=== PATIENT | male | born 1935 | race Caucasian/White ===

== ENCOUNTER 2021-08-06 01:02 | Emergency (ER) | payer MEDICARE, BC ==
[~2021-08-06 01:02] MED LIST: ABILIFY 2 MG TAB2 MG PO; ABILIFY2 MG PO; ALPRAZOLAM0.5 MG PO; AMIODARONE HCL200 MG PO; ASPIR-LOW81 MG PO; ASPIRIN325 MG PO; B12 PO; B6 PO; CALCIUM 600 +1 EACH PO; CALCIUM600 MG PO; CARDIZEM 30MG T30 MG PO; CHONDROITIN PO; CICLOPIROX 8%34.6 ML TP; CLARITIN10 MG PO; D3 PO; DAILY MULTIPLE1 EAC1 PO; ELIQUIS 5 MG TAB5 MG PO; ELIQUIS5 MG PO; FLONASE 0.05% N16 GM; GLUCOSAMINE &1 EAC1 PO; GLUCOSAMINE PO; HARD NAILS2500 MCG PO; KEFLEX CAP 500500 MG PO; LOTRIMIN CREAM15 GM TP; METOPROLOL SUCC50 MG PO; NEXIUM 24HR22.3 MG PO; NITROGLYCERIN0.4 MG SL; OCUVITE EYE PL1 EACH PO; OCUVITE EYEBOTH; OMNICEF 300 MG300 MG PO; PRO AIR INH INH; PROAIR HFA8.5 GM INH; PROTONIX40 MG PO; PROVENTIL HFA 61 INH INH; SERZONE TAB 10100 MG PO; SOTALOL120 MG PO; SOTALOL80 MG PO; STOOL SOFTENER100 MG PO; TESSALON PERLE100 MG PO; THERAGRAN M TAB1 EA PO; TOPROL XL50 MG PO; TYLENOL 500 MG500 MG PO; VITAMIN B-121000 MCG PO; VITAMIN B-6100 MG PO; VITAMIN D1000 UNIT PO; XANAX0.5 MG PO; ZOLOFT100 MG PO
[2021-08-06 01:49] LABS: RED BLOOD COUNT 4.48 M/UL (4.20-5.50); WHITE BLOOD COUNT 13.1 K/UL (4.5-11.0)
[2021-08-06 02:37] LABS: BUN/CREATININE RATIO 20 (0-10)
[2021-08-06] MEDS ORDERED: PREDNISONE20 MG PO (03:42)
[2021-08-06] MEDS ORDERED: ALBUTEROL2.5 MG/3 M INH (03:48)
[2021-08-06] MEDS ORDERED: NEBULIZER UNIT (03:48)
[2021-08-06] MEDS ORDERED: PULMICORT FLEX90 MCG INH (03:48)
== END 2021-08-06 03:54 | disposition admitted as inpatient to this hospital (09) ==
LOC: ER1 01:02
PROVIDERS: Family Medicine
DX: J44.1 Chronic obstructive pulmonary disease with (acute) exacerbation (principal); Z87.891 Personal history of nicotine dependence
CPT/HCPCS: 71045; 80053; 82550; 82553; 83605; 84484; 85025; 93005; 94664; 96374; 99285; J2930

== ENCOUNTER → 2021-08-09 | Outpatient (CLI) | payer MEDICARE, BC ==
[~2021-08-09] MED LIST changes: +ALBUTEROL2.5 MG/3 M INH; +NEBULIZER UNIT; +PREDNISONE20 MG PO; +PULMICORT FLEX90 MCG INH
[2021-08-09 15:46] LABS: RED BLOOD COUNT 3.98 M/UL (4.20-5.50); WHITE BLOOD COUNT 12.6 K/UL (4.5-11.0)
== END ==
LOC: RAD 14:54
PROVIDERS: Nurse Practitioner
DX: R06.02 Shortness of breath (principal); R06.2 Wheezing; R53.83 Other fatigue; I12.9 Hypertensive chronic kidney disease with stage 1 through stage 4 chronic kidney disease, or unspecified chronic kidney disease; N18.2 Chronic kidney disease, stage 2 (mild); Z88.2 Allergy status to sulfonamides
CPT/HCPCS: 36415; 71046; 80053; 83880; 85025; 85379

== ENCOUNTER 2021-08-10 17:10 | Emergency (ER) | payer MEDICARE, BC ==
[2021-08-10 18:05] LABS: HEMOGLOBIN 13.1 gm/dl (14.0-17.5); RED BLOOD COUNT 3.98 M/UL (4.20-5.50); WHITE BLOOD COUNT 12.6 K/UL (4.5-11.0)
[2021-08-10 18:34] LABS: BUN/CREATININE RATIO 32 (0-10)
== END 2021-08-10 20:48 | disposition home or self-care (01) ==
LOC: ER1 17:10
PROVIDERS: Nurse Practitioner
DX: R05.9 Cough, unspecified (principal); R79.89 Other specified abnormal findings of blood chemistry; R94.4 Abnormal results of kidney function studies; I48.91 Unspecified atrial fibrillation; I11.9 Hypertensive heart disease without heart failure; J44.9 Chronic obstructive pulmonary disease, unspecified; Z88.2 Allergy status to sulfonamides; Z20.822 Contact with and (suspected) exposure to COVID-19
CPT/HCPCS: 80053; 82550; 82553; 83874; 83880; 84484; 85025; 85610; 93005; 99285; U0002

== ENCOUNTER → 2021-09-21 | Outpatient (CLI) | payer MEDICARE, BC | LOC: HEART 5 09:08 | DX: I48.91 Unspecified atrial fibrillation (principal); R06.02 Shortness of breath; I08.3 Combined rheumatic disorders of mitral, aortic and tricuspid valves | CPT/HCPCS: 93306 ==

== ENCOUNTER 2022-05-08 11:18 | Emergency (ER) | payer MEDICARE, BC ==
[2022-05-08 12:25] LABS: RED BLOOD COUNT 3.89 M/UL (4.20-5.50); WHITE BLOOD COUNT 13.5 K/UL (4.5-11.0)
[2022-05-08 12:48] LABS: BUN/CREATININE RATIO 19 (0-10)
== END 2022-05-08 18:00 | disposition short-term general hospital (02) ==
LOC: ER1 11:18
PROVIDERS: Emergency Medicine
DX: N13.2 Hydronephrosis with renal and ureteral calculous obstruction (principal); Q61.9 Cystic kidney disease, unspecified; N17.9 Acute kidney failure, unspecified; D72.829 Elevated white blood cell count, unspecified; J45.909 Unspecified asthma, uncomplicated; R00.1 Bradycardia, unspecified; Z20.822 Contact with and (suspected) exposure to COVID-19; I11.0 Hypertensive heart disease with heart failure; I50.9 Heart failure, unspecified; I48.91 Unspecified atrial fibrillation; Z87.442 Personal history of urinary calculi; Z79.01 Long term (current) use of anticoagulants; Z86.73 Personal history of transient ischemic attack (TIA), and cerebral infarction without residual deficits; Z86.79 Personal history of other diseases of the circulatory system
CPT/HCPCS: 0240U; 71045; 80053; 81001; 82550; 82553; 83605; 83690; 83880; 84484; 85025; 87040; 87086; 93005; 96361; 96374; 96375; 99285; J0696; J2270; J2405; J7040

== ENCOUNTER → 2022-06-29 | Outpatient (CLI) | payer MEDICARE ==
[~2022-06-29] MED LIST changes: +ALLOPURINOL100 MG PO; -B12 PO; -B6 PO; -CHONDROITIN PO; -D3 PO; +ELIQUIS2.5 MG PO; -ELIQUIS5 MG PO; +GLUCOSAMINE CH1 EAC6 PO; +OCUVITE ADULT1 EAC2 PO; -OCUVITE EYEBOTH; +TYLENOL325 MG PO; +VITAMIN D350 MCG PO
== END ==
LOC: LAB 13:29
PROVIDERS: Nurse Practitioner
DX: N18.4 Chronic kidney disease, stage 4 (severe) (principal)
CPT/HCPCS: 36415; 80048